=== PATIENT | female | born 1995 ===

== ENCOUNTER 2022-05-08 05:03 | Emergency (ER) | payer MEDICAID ==
[2022-05-08] MEDS ORDERED: oxyCODONE /ACETAMINOPHEN 5-325MG TAB PO ONE (06:43)
[2022-05-08] MEDS ORDERED: KETOROLAC 60 MG/2 ML INJ IM STA (06:43)
--- NOTE | 2022-05-08 06:52 | Emergency Department Report ---
Upper Extremity - HPI Chief Complaint: Extremity Problem,Nontraumatic Stated Complaint: SHOULDER PAIN Time Seen by Provider: 05/08/22 06:08 Upper Extremity: Right Shoulder Occurred When: 2 Days Mechanism: Other Severity: moderate Symptoms: Yes Pain with Movement, Yes Limited Range of Movement, No Deformity, No Numbness, No Weakness, No Swelling, No Bruising/Ecchymosis, No Laceration or Abrasion Other History: 26-year-old female with medical complaining of severe right shoulder pain was spontaneous occurrence of unknown etiology states that she has been having pain to multiple joints at different times since discharge history of and is not sure as to why she denies being bitten by taking or taking any new medications any foreign travel denies sick contacts or any known history of any musculoskeletal issues. She reports no fever, chills, sweats ED Review of Systems ROS: Stated complaint: SHOULDER PAIN Other details as noted in HPI Comment: All other systems reviewed and negative ED Past Medical Hx - Past Medical History Previous Medical History?: No - Surgical History Past Surgical History?: Yes Additional Surgical History: Tubaligation - Social History Smoking Status: Never Smoker Substance Use Type: None - Medications Home Medications: Home Medications Medication Instructions Recorded Confirmed Last Taken Type Ketorolac [Toradol] 10 mg PO Q6H PRN #14 05/08/22 Unknown Rx traMADoL [Ultram] 50 mg PO Q6HR PRN #20 tablet 05/08/22 Unknown Rx Upper Extremity Exam - Exam General: Vital signs noted. No distress. Alert and acting appropriately. Head and Torso: No HEENT Abnormality, No Neck Tenderness, No Chest/Lungs Abnormality, No Abdominal Tenderness, No Back Tenderness Shoulder Exam: Yes Shoulder Tenderness (Pain with valgus testing with [place]'s test pain with Neer's test. Tenderness with palpation.), Yes Normal Range of Motion in Shoulder, No Clavicle Tenderness, No Shoulder Deformity, No AC Joint Tenderness Arm Exam: Yes Arm/Humerus Tenderness, No Arm Deformity Elbow: No Elbow Tenderness, No Normal Range of Motion in Elbow, No Elbow Deformity Forearm: No Forearm Tenderness, No Forearm Deformity, No Pain with Pronation, No Pain with Supination Wrist: Yes Normal ROM in Wrist, No Wrist Tenderness, No Wrist Deformity, No Snuffbox Tenderness, No Pain with Axial Thumb Compression Hand: Yes Normal ROM in Digit(s), No Hand Tenderness, No Hand Deformity, No Digit Tenderness, No Digit(s) Deformity, No Tendon Dysfunction CMS Exam: No Broken Skin, No Normal Distal Pulses, No Normal Capillary Refill, No Normal Distal Sensation ED Course Vital Signs 05/08/22 05:07 Temperature 99.0 F Pulse Rate 95 H Respiratory 18 Rate Blood Pressure 146/91 O2 Sat by Pulse 97 Oximetry Critical care attestation.: If time is entered above; I have spent that time in minutes in the direct care of this critically ill patient, excluding procedure time. ED Disposition Clinical Impression: Shoulder pain, right Disposition: HOME / SELF CARE / HOMELESS Is pt being admited?: No Does the pt Need Aspirin: No Condition: Stable Instructions: Shoulder Pain, Adhesive Capsulitis Prescriptions: Ketorolac [Toradol] 10 mg PO Q6H PRN #14 PRN Reason: Pain traMADoL [Ultram] 50 mg PO Q6HR PRN #20 tablet PRN Reason: Pain Referrals: JACINTA ALAMO MD [Primary Care Provider] - 3-5 Days
[2022-05-08 07:01] VITALS: BP 138/88
== END 2022-05-08 07:01 | disposition home or self-care (01) ==
LOC: ED 05:03
DX: M25.511 Pain in right shoulder (principal)
CPT/HCPCS: 96372; 99282; J1885